=== PATIENT | female | born 1985 | race Caucasian/White ===

== ENCOUNTER 2019-04-08 20:07 | Inpatient (IN) | payer OTHER ==
[~2019-04-08] VITALS: Ht 162.6 cm; Wt 3.2 kg
== END 2019-04-12 12:47 | disposition home or self-care (01) | DRG 788 ==
LOC: LDR 20:07 → SURG-SUITE 20:07 → O/R 20:07 → SURG-SUITE 04-09 11:46
PROVIDERS: ADMIT Obstetrics & Gynecology
PROC: 10D00Z1 Extraction of Products of Conception, Low, Open Approach (ICD-10-PCS; principal; 2019-04-08)
PROC: 3E0P7VZ Introduction of Hormone into Female Reproductive, Via Natural or Artificial Opening (ICD-10-PCS; 2019-04-08)
PROC: 4A1HXCZ Monitoring of Products of Conception, Cardiac Rate, External Approach (ICD-10-PCS; 2019-04-08)
DX: O82 Encounter for cesarean delivery without indication (principal); O61.0 Failed medical induction of labor; Z3A.40 40 weeks gestation of pregnancy; Z37.0 Single live birth